=== PATIENT | female | born 1985 | race Caucasian/White ===

== ENCOUNTER → 2018-08-11 | Outpatient (CLI) | payer OTHER ==
--- NOTE | 2018-08-11 11:37 | MRI ---
EXAM DESCRIPTION: MRI left knee CLINICAL HISTORY: S83.51D. Posterior weakness. Pain and popping. Volleyball injury COMPARISON: None. TECHNIQUE: Multiplanar, multisequence MR images of the left knee FINDINGS: Complete tear proximal ACL. Osseous contusion posterior nonarticular lateral tibial epiphysis and small crescentic marginal trabecular fracture posterior medial epiphysis subjacent to the posterior horn medial meniscus.. No chondral defect. No meniscal tear. Forme fruste discoid lateral meniscus. No pre-existing femorotibial chondrosis PCL, MCL and fibular collateral ligaments are intact No patellofemoral chondrosis Biceps femoris, popliteus and iliotibial band tendons are normal. Patellar and quadriceps tendons and tendons of the posterior medial knee are intact Moderate joint effusion. No synovitis or intra-articular body IMPRESSION: Complete tear ACL with characteristic posterior tibial contusion/trabecular microfracture Electronically signed by: Tony Hernandez MD 08/11/2018 11:34 AM CDT
== END ==
LOC: MRI 07:47
PROVIDERS: ATTEND Family Medicine
DX: S83.512D Sprain of anterior cruciate ligament of left knee, subsequent encounter (principal); S82.002A Unspecified fracture of left patella, initial encounter for closed fracture